=== PATIENT | male | born 1970 | race Caucasian/White ===

== ENCOUNTER 2021-02-16 17:49 | Emergency (ER) | payer OTHER ==
[~2021-02-16] VITALS: Ht 182.9 cm; Wt 90.7 kg
[2021-02-16 17:54] VITALS: BP 168/82
--- NOTE | 2021-02-17 11:14 | EKG ---
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
== END 2021-02-16 19:52 | disposition left against medical advice (07) ==
LOC: M.ERS 17:49
DX: R07.89 Other chest pain (principal); R00.2 Palpitations; Z53.21 Procedure and treatment not carried out due to patient leaving prior to being seen by health care provider